=== PATIENT | female | born 1965 | race Asian ===

== ENCOUNTER 2018-03-10 15:18 | Emergency (ER) | payer SELFPAY ==
[~2018-03-10] VITALS: Ht 149.9 cm; Wt 61.0 kg
[2018-03-10] MEDS ORDERED: FLUORESCEIN SODIUM 1MG/STRIP OP ONE (19:30)
[2018-03-10] MEDS ORDERED: TETRACAINE 0.5% OPHTH DROPS 4ML OP ONE (19:30)
[2018-03-10 20:38] VITALS: BP 126/70
== END 2018-03-10 20:46 | disposition home or self-care (01) ==
LOC: ER 15:18
DX: H11.31 Conjunctival hemorrhage, right eye (principal); S05.01XA Injury of conjunctiva and corneal abrasion without foreign body, right eye, initial encounter; X58.XXXA Exposure to other specified factors, initial encounter; Y93.9 Activity, unspecified; Y92.9 Unspecified place or not applicable
CPT/HCPCS: 99283